=== PATIENT | male | born 1980 | race Caucasian/White ===

== ENCOUNTER 2017-08-26 13:00 | Emergency (ER) | payer MEDICAID, OTHER ==
[2017-08-26] MEDS: DIPHTH/TET/ACEL PERTUSS (ADULT) 0.5 ML VIAL IM (13:45)
[2017-08-26] MEDS: IBUPROFEN 600 MG TAB PO (13:55)
[2017-08-26] MEDS: HYDROCODONE/APAP (5/325) TAB PO (13:55)
== END 2017-08-26 14:10 | disposition home or self-care (01) ==
LOC: FTE 13:00
DX: S41.112A Laceration without foreign body of left upper arm, initial encounter (principal); W22.8XXA Striking against or struck by other objects, initial encounter; Y92.9 Unspecified place or not applicable; Z23 Encounter for immunization
CPT/HCPCS: 12004; 90471; 90715; 99284-25

== ENCOUNTER 2017-09-07 19:31 | Emergency (ER) | payer MEDICAID | END 2017-09-07 20:43 | disposition home or self-care (01) | LOC: E/R 19:31 | DX: Z48.02 Encounter for removal of sutures (principal) | CPT/HCPCS: 99281; Z7502 ==

== ENCOUNTER 2019-02-17 21:33 | Emergency (ER) | payer SELFPAY, MEDICAID | END 2019-02-17 23:46 | disposition left against medical advice (07) | LOC: FTE 21:33 | DX: Z53.21 Procedure and treatment not carried out due to patient leaving prior to being seen by health care provider (principal) ==